=== PATIENT | female | born 1950 | race Caucasian/White ===

== ENCOUNTER → 2017-01-10 | Outpatient (CLI) | payer BC, OTHER ==
[~2017-01-10] MED LIST: GADOBUTROL 10 MMOL/10 ML (GADAVIST) VIAL IV ONE
[2017-01-10 09:54] LABS: BLOOD UREA NITROGEN 13 MG/DL (7-18); BUN/CREATININE RATIO 18; CREATININE SERUM 0.74 MG/DL (0.60-1.30); GFR ESTIMATED > 60
--- NOTE | 2017-01-10 13:08 | Diagnostic Imaging Report ---
TECHNIQUE: Multiplanar, multisequence MRI of the brain and orbits is performed with and without intravenous contrast. 10 mL of Gadavist is administered intravenously. INDICATION: Glaucoma. Swelling of the left optic nerve. FINDINGS: There is no diffusion restriction to suggest an acute infarct or other diffusion abnormality. There are minimal periventricular white matter T2 hyperintense signal abnormalities with no edema or mass effect. No postcontrast enhancement. This is likely secondary to minimal chronic microvascular ischemic changes sequela. No enhancing lesion, brain edema, or evidence of demyelinating plaque. There is normal appearance of the brainstem and the cerebellum. The pituitary gland is normal in size. No hypothalamic or pineal region mass. The optic nerves appear symmetric. There is slight prominence of CSF intensity seen around the optic nerves, still probably within normal limits. The central vascular flow-voids appear grossly unremarkable. The inner ear structures and internal auditory canals appear unremarkable. The orbital soft tissue contents appear within normal limits with normal thickness and signal in the extraocular muscles and symmetric appearance of the globes. No significant abnormality is seen in the paranasal sinuses visualized portions. IMPRESSION: No significant abnormality. Dictated by: Dictated on workstation # [id number]
== END ==
LOC: RAD 09:17
PROVIDERS: ATTEND Ophthalmology
DX: H47.10 Unspecified papilledema (principal)
CPT/HCPCS: 36415; 70553; 82565; 84520